=== PATIENT | male | born 1935 | race African-American/Black ===

== ENCOUNTER 2016-06-03 06:24 | Day surgery (SDC) | payer OTHER ==
[2016-06-01 11:10] VITALS: BMI 20.9
[~2016-06-03 06:24] MED LIST: ACETAMINOPHEN 325 MG TABLET (FP) PO PRN; CIPROFLOXACIN HCL 0.3% OPHTH 2.5ML BOTTLE OP SCH; CYCLOPENTOLATE HCL 1% OPHTH SOLN 2 ML BOTTLE OP SCH; FLURBIPROFEN 0.03% OPHTH SOLN 2.5 ML BOTTLE OP SCH; PHENYLEPHRINE 2.5% OPHTH SOLN 15 ML BOTTLE OP SCH; TROPICAMIDE 1% OPHTH SOLN 15 ML BOTTLE OP SCH; VANCOMYCIN 500 MG VIAL (RESTRICTED TO ID ONLY) IVPB ONE
[2016-06-03] MEDS ORDERED: PHENYLEPHRINE 2.5% OPHTH SOLN 15 ML BOTTLE ONE (06:43)
[2016-06-03] MEDS ORDERED: TROPICAMIDE 1% OPHTH SOLN 15 ML BOTTLE ONE (06:43)
[2016-06-03] MEDS ORDERED: CYCLOPENTOLATE HCL 1% OPHTH SOLN 2 ML BOTTLE ONE (06:43)
[2016-06-03] MEDS ORDERED: CIPROFLOXACIN 0.3% EYE DROPS 5 ML BOTTLE ONE (06:43)
[2016-06-03] MEDS ORDERED: FLURBIPROFEN 0.03% OPHTH SOLN 2.5 ML BOTTLE ONE (06:43)
[2016-06-03 06:55] VITALS: TEMP 97.6
[2016-06-03] MEDS ORDERED: PHENYLEPHRINE/KETOROLAC 4 ML VIAL IO ONE ×2 (07:15→08:24)
[2016-06-03] MEDS ORDERED: LIDOCAINE HCL/PF 1% SDV 5ML VIAL ONE (07:36)
[2016-06-03] MEDS ORDERED: VANCOMYCIN 500 MG VIAL (RESTRICTED TO ID ONLY) ONE (07:36)
[2016-06-03] MEDS ORDERED: EPINEPHrine/PF 1 MG/1 ML (1:1,000) AMPULE ONE (07:36)
[2016-06-03] MEDS ORDERED: WATER FOR INJ,STERILE 10 ML ONE (07:37)
[2016-06-03] MEDS ORDERED: BSS (NA/CA/MG/K) BALANCED SALT SOLUTION OPHTH SOLN 15 ML BOTTLE ONE (07:37)
[2016-06-03] MEDS ORDERED: POVIDONE-IODINE 5% OPHTHALMIC PREP 30 ML SOLUTION ONE (07:37)
[2016-06-03] MEDS ORDERED: LIDOCAINE HCL 2% JELLY (5 ML/TUBE) ONE (07:43)
[2016-06-03] MEDS ORDERED: ALBUTEROL SO4 6.7 GM HFA INHALER IH ONE (07:44)
[2016-06-03] MEDS ORDERED: MIDAZOLAM HCL 2 MG/2 ML SINGLE DOSE VIAL ONE (07:44)
[2016-06-03] MEDS ORDERED: LIDOCAINE HCL 2% JELLY (5 ML/TUBE) TP ONE (07:57)
[2016-06-03] MEDS ORDERED: POVIDONE-IODINE 5% OPHTHALMIC PREP 30 ML SOLUTION OD ONE (08:13)
[2016-06-03] MEDS ORDERED: LIDOCAINE HCL 1% PRESERVATIVE FREE - 30ML VIAL IO ONE (08:19)
[2016-06-03] MEDS ORDERED: BSS (NA/CA/MG/K) BALANCED SALT SOLUTION OPHTH SOLN 15 ML BOTTLE OD ONE (08:19)
[2016-06-03] MEDS ORDERED: CHONDROITIN SU A/HYALUR SOD 1 KIT IO ONE (08:20)
[2016-06-03] MEDS ORDERED: VANCOMYCIN 500 MG VIAL (RESTRICTED TO ID ONLY) IVPB ONE (08:40)
--- NOTE | 2016-06-03 09:06 | SPEC ---
DATE OF OPERATION: 06/03/2016 PREOPERATIVE DIAGNOSIS: Cataract, right eye. POSTOPERATIVE DIAGNOSIS: Cataract, right eye. OPERATION: Phacoemulsification of right cataract with posterior chamber intraocular lens implantation. Lens used [id number], 19.5 Diopter power, Serial No. [id number]. SURGEON: John zSymanski M.D. ANESTHESIA: Topical MAC. COMPLICATIONS: None. PROCEDURE: The patient was brought to the operating room and correctly identified along with the operative site and the correct intraocular lens lennon. The patient was then prepped and draped in the usual sterile fashion including 5% Betadine solution in the conjunctival sac and an eyelid drape. An eyelid speculum was then placed in the eye. A paracentesis port was created and approximately 0.5 mL of preservative free Lidocaine was then injected into the eye. Viscoelastic was then injected to inflate the anterior chamber. A temporal clear corneal wound was created. A continuous circular capsulorrhexis was performed. The nucleus was then hydro-dissected with BSS and removed with phacoemulsification. The remaining cortical material was irrigated and aspirated. Viscoelastic was injected to inflate the capsular bag and the intraocular lens was then implanted into the capsular bag. The remaining Viscoelastic was irrigated and aspirated from the eye. The IOL was noted to be well centered and completely covered by the anterior capsulorrhexis. Topical Vancomycin was placed and the eye patched and shielded. The patient was then discharged from the operating room in stable condition. All wounds were tested and found to be watertight. No suture was placed. The eye was then shielded. The patient was then discharged from the operating room in stable condition. JOHN SZYMANSKI M.D. /[id number]
[2016-06-03 12:21] VITALS: BP 163/96; PULSE 90
== END 2016-06-03 09:35 | disposition home or self-care (01) ==
LOC: JASU-SURG 06:24
PROVIDERS: ATTEND Ophthalmology
PROC: 08RJ3JZ Replacement of Right Lens with Synthetic Substitute, Percutaneous Approach (ICD-10-PCS; principal; 2016-06-03 08:00)
DX: H26.9 Unspecified cataract (principal)
CPT/HCPCS: C9447

== ENCOUNTER 2022-08-22 17:49 | Inpatient (IN) | payer BC, OTHER ==
[2022-08-22] MEDS ORDERED: ALBUTEROL SO4 2.5/IPRATROPIUM 0.5 INH SOL 3 ML VIAL.NEB. NEB ONE ×3 (17:59→18:16)
[2022-08-22] MEDS ORDERED: CEFTRIAXONE 1 GM in DEXTROSE 5%-WATER - 50 ML IVPB ONE (18:46)
[2022-08-22 18:47] LABS: VENOUS BASE EXCESS -1.9 mmol/L (-2-2); VENOUS O2 SATURATION 85.5 % (70-80); VENOUS PCO2 50.9 mmHg (38-52); VENOUS PH 7.311 (7.310-7.410)
[2022-08-22] MEDS ORDERED: AZITHROMYCIN IVPB 500 MG in DEXTROSE 5%-WATER - 250 ML IVPB ONE (18:47)
[2022-08-22] MEDS ORDERED: ACETAMINOPHEN 1000 MG/100 ML BAG IVPB ONE (18:48)
[2022-08-22 18:51] LABS: BASO % 0.3 % (0-2.0); HEMATOCRIT 44.9 % (35.4-49); HEMOGLOBIN 14.8 GM/dL (11.7-16.9); LYMPH % 18.3 % (8-40); MCH 28.5 pg (25.7-33.7); MCHC 33.1 g/dl (32.0-35.9); MEAN CELL VOLUME 86.1 fl (80-96); MEAN PLT VOLUME 8.4 fl (7.5-11.1); MONO % 8.3 % (3.8-10.2); NEUT % 70.1 % (42.8-82.8); PLATELET COUNT 196 10^3/uL (134-434); RBC 5.21 M/mm3 (4.00-5.60); RDW 14.5 % (11.9-15.9); WHITE BLOOD COUNT 16.6 K/mm3 (4.0-10.0)
[2022-08-22 19:00] LABS: INR 1.13 (0.83-1.09); PROTHROMBIN TIME (PATIENT) 13.1 SEC (9.7-13.0)
[2022-08-22] MEDS ORDERED: AZITHROMYCIN IVPB 500 MG/250 ML BAG IVPB ONE (19:02)
[2022-08-22] MEDS ORDERED: ACETAMINOPHEN INJECTION 100 ML IVPB ONE (19:02)
[2022-08-22] MEDS ORDERED: CEFTRIAXONE 1 GM/50 ML BAG ONE (19:02)
[2022-08-22 19:03] LABS: ACTIVATED PTT 30.4 SECONDS (25.2-36.5)
[2022-08-22 19:14] LABS: ALBUMIN 3.8 g/dl (3.4-5.0); BLOOD UREA NITROGEN 12.4 mg/dL (7-18); CALCIUM 9.2 mg/dL (8.5-10.1)
[2022-08-22 19:17] LABS: CREATININE 1.4 mg/dL (0.55-1.3)
[2022-08-22 19:19] LABS: TOT PROT 8.6 g/dl (6.4-8.2)
[2022-08-22 19:23] LABS: LACTIC ACID 2.6 mmol/L (0.4-2.0)
[2022-08-22] MEDS ORDERED: SODIUM CHLORIDE 0.9% 500 ML INFUS.BAG IV ONE (19:27)
[2022-08-22] MEDS ORDERED: ACETAMINOPHEN 325 MG TABLET (FP) PO PRN (21:41)
[2022-08-22] MEDS: SODIUM CHLORIDE 1,000 ML IV SCH (23:16)
[2022-08-22] MEDS: HEPARIN NA (PORCINE) 5,000 UNITS/ML 1ML VIAL SQ SCH (23:18)
[2022-08-23 02:14] VITALS: BMI 22.8
[2022-08-23] MEDS: methylPREDNISolone NA SUCC 40 MG/1 ML VIAL IVPUSH SCH ×3 (02:59→17:17)
[2022-08-23] MEDS: HEPARIN NA (PORCINE) 5,000 UNITS/ML 1ML VIAL SQ SCH ×3 (05:26→22:42)
[2022-08-23 06:36] LABS: ARTERIAL BLD GAS O2 SATURATION 98.9 % (95-98); ARTERIAL BLOOD GAS BASE EXCESS -0.1 mmol/L (-2-2); ARTERIAL BLOOD GAS PO2 160.6 mmHg (80-100); ARTERIAL BLOOD GAS pH 7.346 (7.350-7.450)
[2022-08-23 06:38] LABS: ALLENS TEST POSITIVE
[2022-08-23 06:39] LABS: VENT MODE S/T; VENT RATE 16
[2022-08-23] MEDS: ALBUTEROL SO4 2.5/IPRATROPIUM 0.5 INH SOL 3 ML VIAL.NEB. NEB SCH ×4 (07:45→20:40)
[2022-08-23 08:48] LABS: HEMATOCRIT 38.3 % (35.4-49); MCH 28.8 pg (25.7-33.7); MCHC 33.9 g/dl (32.0-35.9); MEAN CELL VOLUME 85.1 fl (80-96); MEAN PLT VOLUME 8.5 fl (7.5-11.1); PLATELET COUNT 169 10^3/uL (134-434); RDW 13.8 % (11.9-15.9); WHITE BLOOD COUNT 17.4 K/mm3 (4.0-10.0)
[2022-08-23 09:07] LABS: CALCIUM 8.4 mg/dL (8.5-10.1)
[2022-08-23 09:08] LABS: ALBUMIN 3.2 g/dl (3.4-5.0); MAGNESIUM 1.9 mg/dL (1.8-2.4)
[2022-08-23 09:10] LABS: CHOLESTEROL 125 mg/dL (50-200)
[2022-08-23 09:11] LABS: CREATININE 1.3 mg/dL (0.55-1.3); LDL CHOLESTEROL (ONLY SJRH) 54 mg/dL (5-100)
[2022-08-23 09:13] LABS: HDL CHOLESTEROL 77 mg/dL (40-60); TOT PROT 7.3 g/dl (6.4-8.2)
[2022-08-23 09:42] LABS: ANISOCYTOSIS 0; HELMET CELLS 0; HOWELL-JOLLY BODIES 0; MACROCYTOSIS 0; OVALOCYTE 0; ROULEAU 0; SICKELED CELLS 0; TARGET CELLS 0; TEAR DROP CELLS 0; TOXIC GRANULATION 0
[2022-08-23] MEDS: CEFTRIAXONE 1 GM in DEXTROSE 5%-WATER - 50 ML IVPB SCH (09:52)
[2022-08-23] MEDS: AZITHROMYCIN IVPB 250 MG in DEXTROSE 5%-WATER - 250 ML IVPB SCH (09:57)
[2022-08-23] MEDS: SODIUM CHLORIDE 1,000 ML IV SCH (22:41)
[2022-08-23] MEDS: ATORVASTATIN CA 20 MG TABLET (FP) PO SCH (22:44)
[2022-08-23] MEDS: DOCUSATE SODIUM 100 MG CAPSULE (FP) PO SCH (23:05)
[2022-08-24 00:52] LABS: PH,URINE 5.5 (5.0-8.0); URINE APPEARANCE CLEAR; URINE BILIRUBIN NEGATIVE (NEGATIVE); URINE COLOR YELLOW; URINE GLUCOSE (UA) NEGATIVE (NEGATIVE); URINE KETONE NEGATIVE (NEGATIVE); URINE LEUK ESTERASE NEGATIVE (NEGATIVE); URINE NITRITE NEGATIVE (NEGATIVE); URINE PROTEIN TRACE (NEGATIVE); URINE UROBILINOGEN 0.2 mg/dL (0.2-1.0)
[2022-08-24] MEDS: methylPREDNISolone NA SUCC 40 MG/1 ML VIAL IVPUSH SCH ×3 (02:10→17:38)
[2022-08-24] MEDS: DOCUSATE SODIUM 100 MG CAPSULE (FP) PO SCH ×3 (05:02→22:57)
[2022-08-24] MEDS: HEPARIN NA (PORCINE) 5,000 UNITS/ML 1ML VIAL SQ SCH (05:10)
[2022-08-24] MEDS: ALBUTEROL SO4 2.5/IPRATROPIUM 0.5 INH SOL 3 ML VIAL.NEB. NEB SCH ×4 (07:40→20:50)
[2022-08-24 08:11] LABS: HEMATOCRIT 36.9 % (35.4-49); HEMOGLOBIN 12.7 GM/dL (11.7-16.9); MCH 29.2 pg (25.7-33.7); MCHC 34.2 g/dl (32.0-35.9); MEAN CELL VOLUME 85.2 fl (80-96); MEAN PLT VOLUME 8.5 fl (7.5-11.1); PLATELET COUNT 164 10^3/uL (134-434); RBC 4.34 M/mm3 (4.00-5.60); WHITE BLOOD COUNT 18.5 K/mm3 (4.0-10.0)
[2022-08-24 09:04] LABS: ANISOCYTOSIS 0; HELMET CELLS 0; HOWELL-JOLLY BODIES 0; MACROCYTOSIS 0; OVALOCYTE 0; ROULEAU 0; SICKELED CELLS 0; TARGET CELLS 0; TEAR DROP CELLS 0; TOXIC GRANULATION 0
[2022-08-24 09:07] LABS: BLOOD UREA NITROGEN 31.1 mg/dL (7-18)
[2022-08-24 09:08] LABS: TOT PROT 7.2 g/dl (6.4-8.2)
[2022-08-24 09:09] LABS: BILIRUBIN,TOTAL 0.3 mg/dL (0.2-1)
[2022-08-24 09:10] LABS: CREATININE 1.3 mg/dL (0.55-1.3)
[2022-08-24 09:11] LABS: ALBUMIN 3.1 g/dl (3.4-5.0); CALCIUM 8.1 mg/dL (8.5-10.1)
[2022-08-24 09:12] LABS: MAGNESIUM 2.1 mg/dL (1.8-2.4)
[2022-08-24] MEDS: CEFTRIAXONE 1 GM in DEXTROSE 5%-WATER - 50 ML IVPB SCH (09:13)
[2022-08-24] MEDS: AZITHROMYCIN IVPB 250 MG in DEXTROSE 5%-WATER - 250 ML IVPB SCH (09:13)
[2022-08-24] MEDS: ENOXAPARIN NA (PORCINE) 40 MG/0.4 ML DISP.SYRIN SQ SCH (10:55)
[2022-08-24] MEDS: ATORVASTATIN CA 20 MG TABLET (FP) PO SCH (22:55)
[2022-08-25] MEDS: methylPREDNISolone NA SUCC 40 MG/1 ML VIAL IVPUSH SCH ×3 (01:44→21:40)
[2022-08-25] MEDS: DOCUSATE SODIUM 100 MG CAPSULE (FP) PO SCH ×3 (06:23→21:40)
[2022-08-25 07:48] LABS: HEMATOCRIT 37.9 % (35.4-49); HEMOGLOBIN 12.9 GM/dL (11.7-16.9); MCHC 34.1 g/dl (32.0-35.9); PLATELET COUNT 176 10^3/uL (134-434); RBC 4.45 M/mm3 (4.00-5.60); RDW 13.9 % (11.9-15.9); WHITE BLOOD COUNT 16.4 K/mm3 (4.0-10.0)
[2022-08-25 08:42] LABS: ANISOCYTOSIS 0; HELMET CELLS 0; HOWELL-JOLLY BODIES 0; MACROCYTOSIS 0; OVALOCYTE 0; ROULEAU 0; SICKELED CELLS 0; TARGET CELLS 0; TEAR DROP CELLS 0; TOXIC GRANULATION 0
[2022-08-25 08:53] LABS: CALCIUM 8.2 mg/dL (8.5-10.1)
[2022-08-25 08:54] LABS: ALBUMIN 2.9 g/dl (3.4-5.0); BLOOD UREA NITROGEN 26.3 mg/dL (7-18); MAGNESIUM 2.3 mg/dL (1.8-2.4)
[2022-08-25 08:57] LABS: CREATININE 1.1 mg/dL (0.55-1.3)
[2022-08-25 08:58] LABS: BILIRUBIN,TOTAL 0.4 mg/dL (0.2-1)
[2022-08-25 08:59] LABS: TOT PROT 6.8 g/dl (6.4-8.2)
[2022-08-25] MEDS: ALBUTEROL SO4 2.5/IPRATROPIUM 0.5 INH SOL 3 ML VIAL.NEB. NEB SCH ×4 (09:35→20:05)
[2022-08-25] MEDS: ENOXAPARIN NA (PORCINE) 40 MG/0.4 ML DISP.SYRIN SQ SCH (10:16)
[2022-08-25] MEDS: CEFTRIAXONE 1 GM in DEXTROSE 5%-WATER - 50 ML IVPB SCH (10:17)
[2022-08-25] MEDS: AZITHROMYCIN IVPB 250 MG in DEXTROSE 5%-WATER - 250 ML IVPB SCH (10:19)
[2022-08-25] MEDS: ATORVASTATIN CA 20 MG TABLET (FP) PO SCH (21:40)
[2022-08-26] MEDS: DOCUSATE SODIUM 100 MG CAPSULE (FP) PO SCH ×3 (05:18→21:04)
[2022-08-26 07:30] LABS: BASO % 0.1 % (0-2.0); HEMATOCRIT 38.4 % (35.4-49); HEMOGLOBIN 13.1 GM/dL (11.7-16.9); LYMPH % 7.2 % (8-40); MCH 29.1 pg (25.7-33.7); MEAN CELL VOLUME 85.6 fl (80-96); MEAN PLT VOLUME 8.5 fl (7.5-11.1); MONO % 3.4 % (3.8-10.2); NEUT % 89.3 % (42.8-82.8); PLATELET COUNT 182 10^3/uL (134-434); RBC 4.49 M/mm3 (4.00-5.60); RDW 14.2 % (11.9-15.9); WHITE BLOOD COUNT 14.3 K/mm3 (4.0-10.0)
[2022-08-26] MEDS: ALBUTEROL SO4 2.5/IPRATROPIUM 0.5 INH SOL 3 ML VIAL.NEB. NEB SCH ×4 (07:45→20:39)
[2022-08-26 07:51] LABS: ALBUMIN 2.8 g/dl (3.4-5.0); BLOOD UREA NITROGEN 24.6 mg/dL (7-18); CALCIUM 8.1 mg/dL (8.5-10.1); MAGNESIUM 2.4 mg/dL (1.8-2.4)
[2022-08-26 07:54] LABS: PHOSPHOROUS 3.4 mg/dL (2.5-4.9)
[2022-08-26 07:56] LABS: BILIRUBIN,TOTAL 0.3 mg/dL (0.2-1); TOT PROT 6.5 g/dl (6.4-8.2)
[2022-08-26] MEDS: methylPREDNISolone NA SUCC 40 MG/1 ML VIAL IVPUSH SCH ×2 (09:47→21:04)
[2022-08-26] MEDS: ENOXAPARIN NA (PORCINE) 40 MG/0.4 ML DISP.SYRIN SQ SCH ×2 (09:47→09:52)
[2022-08-26] MEDS ORDERED: ALBUTEROL SO4 HFA INHALER IH PRN (12:33)
[2022-08-26] MEDS ORDERED: PATIENT'S OWN MEDICATION (NON-FORMULARY) (Budesonide/Glycopyr/Formoterol [Breztri Aerosphe IH SCH (12:45)
[2022-08-26] MEDS: ATORVASTATIN CA 20 MG TABLET (FP) PO SCH (21:03)
[2022-08-26] MEDS ORDERED: FAMOTIDINE 20 MG TABLET PO ONE (22:41)
[2022-08-27] MEDS: DOCUSATE SODIUM 100 MG CAPSULE (FP) PO SCH ×3 (05:50→21:53)
[2022-08-27 07:51] LABS: HEMOGLOBIN 13.6 GM/dL (11.7-16.9); LYMPH % 9.9 % (8-40); MCH 29.3 pg (25.7-33.7); MEAN PLT VOLUME 8.4 fl (7.5-11.1); MONO % 4.4 % (3.8-10.2); NEUT % 85.7 % (42.8-82.8); PLATELET COUNT 191 10^3/uL (134-434); RBC 4.65 M/mm3 (4.00-5.60); RDW 14.1 % (11.9-15.9); WHITE BLOOD COUNT 12.5 K/mm3 (4.0-10.0)
[2022-08-27] MEDS: ALBUTEROL SO4 2.5/IPRATROPIUM 0.5 INH SOL 3 ML VIAL.NEB. NEB SCH ×4 (07:54→20:29)
[2022-08-27 08:08] LABS: CALCIUM 8.3 mg/dL (8.5-10.1)
[2022-08-27 08:09] LABS: ALBUMIN 2.8 g/dl (3.4-5.0); BLOOD UREA NITROGEN 21.8 mg/dL (7-18); MAGNESIUM 2.6 mg/dL (1.8-2.4)
[2022-08-27 08:12] LABS: PHOSPHOROUS 3.4 mg/dL (2.5-4.9)
[2022-08-27 08:14] LABS: BILIRUBIN,TOTAL 0.5 mg/dL (0.2-1); TOT PROT 6.3 g/dl (6.4-8.2)
[2022-08-27] MEDS: methylPREDNISolone NA SUCC 40 MG/1 ML VIAL IVPUSH SCH ×2 (09:26→21:53)
[2022-08-27] MEDS: PANTOPRAZOLE 20 MG TABLET PO SCH (09:26)
[2022-08-27] MEDS: ENOXAPARIN NA (PORCINE) 40 MG/0.4 ML DISP.SYRIN SQ SCH ×2 (09:26→10:18)
[2022-08-27] MEDS: ATORVASTATIN CA 20 MG TABLET (FP) PO SCH (21:53)
[2022-08-28] MEDS: DOCUSATE SODIUM 100 MG CAPSULE (FP) PO SCH ×2 (06:11→15:06)
[2022-08-28 08:08] LABS: BASO % 0.1 % (0-2.0); EOS % 0.6 % (0-4.5); HEMATOCRIT 41.9 % (35.4-49); HEMOGLOBIN 14.2 GM/dL (11.7-16.9); LYMPH % 20.4 % (8-40); MCHC 33.9 g/dl (32.0-35.9); MEAN CELL VOLUME 85.6 fl (80-96); MEAN PLT VOLUME 8.1 fl (7.5-11.1); MONO % 8.2 % (3.8-10.2); NEUT % 70.7 % (42.8-82.8); PLATELET COUNT 195 10^3/uL (134-434); WHITE BLOOD COUNT 13.5 K/mm3 (4.0-10.0)
[2022-08-28] MEDS: ALBUTEROL SO4 2.5/IPRATROPIUM 0.5 INH SOL 3 ML VIAL.NEB. NEB SCH ×4 (08:23→20:05)
[2022-08-28 08:24] LABS: BLOOD UREA NITROGEN 21.1 mg/dL (7-18); CALCIUM 8.4 mg/dL (8.5-10.1)
[2022-08-28 08:25] LABS: ALBUMIN 2.7 g/dl (3.4-5.0); MAGNESIUM 2.4 mg/dL (1.8-2.4)
[2022-08-28 08:28] LABS: PHOSPHOROUS 2.5 mg/dL (2.5-4.9)
[2022-08-28 08:29] LABS: BILIRUBIN,TOTAL 0.6 mg/dL (0.2-1); TOT PROT 6.3 g/dl (6.4-8.2)
[2022-08-28] MEDS: PANTOPRAZOLE 20 MG TABLET PO SCH (09:49)
[2022-08-28] MEDS: methylPREDNISolone NA SUCC 40 MG/1 ML VIAL IVPUSH SCH (09:49)
[2022-08-28] MEDS: ENOXAPARIN NA (PORCINE) 40 MG/0.4 ML DISP.SYRIN SQ SCH (09:59)
[2022-08-28 18:34] VITALS: BP 128/83; PULSE 93; RESP 19; TEMP 97.5
[2022-08-28] MEDS ORDERED: RANOLAZINE E.R. 500 MG TABLET (FP) PO SCH (22:00)
[2022-08-29] MEDS ORDERED: amLODIPine BESYLATE 5 MG TABLET (FP) PO SCH (10:00)
[2022-08-29] MEDS ORDERED: predniSONE 20 MG TABLET (UD) PO SCH (10:00)
[2022-08-29] MEDS ORDERED: CILOSTAZOL 50 MG TABLET PO SCH (10:00)
[2022-08-29] MEDS ORDERED: LOSARTAN POTASSIUM 50 MG TABLET PO SCH (10:00)
== END 2022-08-28 20:50 | disposition home or self-care (01) | DRG 189 ==
LOC: JER 17:49 → JERBED 18:49 → J4S 22:06
PROVIDERS: ADMIT Internal Medicine; ATTEND Internal Medicine
DX: J96.01 Acute respiratory failure with hypoxia (principal); E87.20 Acidosis, unspecified; N17.9 Acute kidney failure, unspecified; I10 Essential (primary) hypertension; E78.5 Hyperlipidemia, unspecified; E11.9 Type 2 diabetes mellitus without complications; D72.829 Elevated white blood cell count, unspecified; N28.1 Cyst of kidney, acquired; I27.20 Pulmonary hypertension, unspecified; J43.8 Other emphysema
CPT/HCPCS: 0241U-QW; 36415; 36600; 71045-TC-FY; 71250-TC; 76775-TC; 80053; 80061; 81003; 82550; 82553; 82803; 83036; 83605; 83735; 84100; 84484; 85025; 85610; 85730; 86850; 86900; 86901; 87040; 87899; 93005; 93010; 94640; 94660; 94761; 97116-GP; 99291; J1644

== ENCOUNTER 2023-10-22 09:17 | Inpatient (IN) | payer OTHER ==
[2023-10-22] MEDS ORDERED: ALBUTEROL SO4 2.5/IPRATROPIUM 0.5 INH SOL 3 ML VIAL.NEB. NEB ONE (09:32)
[2023-10-22] MEDS ORDERED: methylPREDNISolone NA SUCC 125 MG/2 ML VIAL ONE (09:32)
[2023-10-22] MEDS: ALBUTEROL SO4 2.5/IPRATROPIUM 0.5 INH SOL 3 ML VIAL.NEB. NEB ONE (09:35)
[2023-10-22] MEDS: methylPREDNISolone NA SUCC 125 MG/2 ML VIAL IVPB ONE (09:45)
[2023-10-22 09:59] LABS: VENOUS BASE EXCESS 3.3 mmol/L (-2-2); VENOUS O2 SATURATION 24.3 % (70-80); VENOUS PCO2 69.8 mmHg (38-52); VENOUS PH 7.287 (7.310-7.410)
[2023-10-22 10:02] LABS: BASO % 0.5 % (0-2.0); EOS % 1.9 % (0-4.5); HEMATOCRIT 46.7 % (35.4-49); HEMOGLOBIN 15.2 GM/dL (11.7-16.9); LYMPH % 20.4 % (8-40); MCH 28.6 pg (25.7-33.7); MCHC 32.6 g/dl (32.0-35.9); MEAN CELL VOLUME 87.8 fl (80-96); MONO % 10.4 % (3.8-10.2); NEUT % 66.8 % (42.8-82.8); PLATELET COUNT 224 10^3/uL (134-434); RBC 5.32 M/mm3 (4.00-5.60); RDW 13.6 % (11.9-15.9); WHITE BLOOD COUNT 13.8 K/mm3 (4.0-10.0)
[2023-10-22] MEDS ORDERED: MAGNESIUM 1GM/D5W - 1 GM/100 ML IVPB IVPB ONE (10:03)
[2023-10-22] MEDS: MAGNESIUM 1GM/D5W - 1 GM/100 ML IVPB IVPB ONE (10:08)
[2023-10-22 10:22] LABS: POTASSIUM 4.3 mmol/L (3.5-5.1)
[2023-10-22 10:24] LABS: BLOOD UREA NITROGEN 11.7 mg/dL (7-18); CALCIUM 8.5 mg/dL (8.5-10.1)
[2023-10-22 10:27] LABS: CREATININE 1.1 mg/dL (0.55-1.3)
[2023-10-22 10:28] LABS: BILIRUBIN,TOTAL 1.3 mg/dL (0.2-1); TOT PROT 7.5 g/dl (6.4-8.2)
[2023-10-22 10:35] LABS: N-TERMINAL BNP 2806.2 pg/ml (5-450)
[2023-10-22 11:20] LABS: VENOUS BASE EXCESS 4.2 mmol/L (-2-2); VENOUS O2 SATURATION 35.9 % (70-80); VENOUS PCO2 73.7 mmHg (38-52)
[2023-10-22 11:22] LABS: VENOUS PH 7.28 (7.310-7.410)
[2023-10-22 11:55] LABS: ARTERIAL BLD GAS O2 SATURATION 98.5 % (95-98); ARTERIAL BLOOD GAS PO2 133.3 mmHg (80-100); ARTERIAL BLOOD GAS pH 7.358 (7.350-7.450)
[2023-10-22] MEDS ORDERED: ACETAMINOPHEN 325 MG TABLET (FP) PO PRN (12:14)
[2023-10-22] MEDS: ALBUTEROL SO4 2.5/IPRATROPIUM 0.5 INH SOL 3 ML VIAL.NEB. NEB SCH (15:40)
[2023-10-22] MEDS: methylPREDNISolone NA SUCC 40 MG/1 ML VIAL IVPUSH SCH (18:22)
[2023-10-22] MEDS: HEPARIN NA (PORCINE) 5,000 UNITS/ML 1ML VIAL SQ SCH (22:23)
[2023-10-22] MEDS: RANOLAZINE E.R. 500 MG TABLET (FP) PO SCH (22:23)
[2023-10-22] MEDS: ATORVASTATIN CA 20 MG TABLET (FP) PO SCH (22:23)
[2023-10-23 06:47] LABS: BASO % 0.1 % (0-2.0); HEMATOCRIT 41.4 % (35.4-49); HEMOGLOBIN 13.6 GM/dL (11.7-16.9); LYMPH % 7.6 % (8-40); MCH 28.5 pg (25.7-33.7); MCHC 32.8 g/dl (32.0-35.9); MEAN CELL VOLUME 86.9 fl (80-96); MEAN PLT VOLUME 8.4 fl (7.5-11.1); MONO % 2.6 % (3.8-10.2); NEUT % 89.7 % (42.8-82.8); PLATELET COUNT 205 10^3/uL (134-434); RBC 4.77 M/mm3 (4.00-5.60); RDW 13.6 % (11.9-15.9); WHITE BLOOD COUNT 12.5 K/mm3 (4.0-10.0)
[2023-10-23 07:07] LABS: POTASSIUM 4.7 mmol/L (3.5-5.1)
[2023-10-23 07:12] LABS: ALBUMIN 2.6 g/dl (3.4-5.0); CALCIUM 8.3 mg/dL (8.5-10.1)
[2023-10-23 07:13] LABS: CHOLESTEROL 140 mg/dL (50-200)
[2023-10-23 07:14] LABS: LDL CHOLESTEROL (ONLY SJRH) 61 mg/dL (5-100)
[2023-10-23 07:17] LABS: BILIRUBIN,TOTAL 0.5 mg/dL (0.2-1); CREATININE 1.1 mg/dL (0.55-1.3); HDL CHOLESTEROL 67 mg/dL (40-60); TOT PROT 6.4 g/dl (6.4-8.2)
[2023-10-23] MEDS: LOSARTAN POTASSIUM 50 MG TABLET PO SCH (09:45)
[2023-10-23] MEDS: amLODIPine BESYLATE 5 MG TABLET (FP) PO SCH (09:45)
[2023-10-23] MEDS: CILOSTAZOL 50 MG TABLET PO SCH (09:45)
[2023-10-23] MEDS: FLUTICASONE/UMECLIDIN/VILANTER(200-62.5-25 TRELEGY ELLIPTA) INAHLER IH SCH (09:45)
[2023-10-24 18:15] VITALS: BMI 19.3
[2023-10-28] MEDS: methylPREDNISolone NA SUCC 40 MG/1 ML VIAL IVPUSH SCH ×2 (02:07→22:01)
[2023-10-28] MEDS: INSULIN (NOVOLOG) ASPART 100 UNITS/ML 10ML VIAL SQ SCH (06:26)
[2023-10-28] MEDS: ACETAMINOPHEN 325 MG TABLET (FP) PO PRN (07:03)
[2023-10-28 08:43] LABS: HEMATOCRIT 45.1 % (35.4-49); HEMOGLOBIN 15.1 GM/dL (11.7-16.9); MCHC 33.4 g/dl (32.0-35.9); MEAN CELL VOLUME 86.6 fl (80-96); PLATELET COUNT 285 10^3/uL (134-434); RBC 5.21 M/mm3 (4.00-5.60); RDW 13.7 % (11.9-15.9); WHITE BLOOD COUNT 17.8 K/mm3 (4.0-10.0)
[2023-10-28 09:15] LABS: ALBUMIN 3.1 g/dl (3.4-5.0)
[2023-10-28 09:17] LABS: CALCIUM 9.2 mg/dL (8.5-10.1)
[2023-10-28 09:18] LABS: CREATININE 1.6 mg/dL (0.55-1.3)
[2023-10-28 09:20] LABS: BILIRUBIN,TOTAL 0.8 mg/dL (0.2-1); TOT PROT 6.9 g/dl (6.4-8.2)
[2023-10-28 09:26] LABS: BLOOD UREA NITROGEN 48.4 mg/dL (7-18)
[2023-10-28 10:04] LABS: ANISOCYTOSIS 0; MACROCYTOSIS 0
[2023-10-28] MEDS: RANOLAZINE E.R. 500 MG TABLET (FP) PO SCH (10:07)
[2023-10-28] MEDS: CILOSTAZOL 50 MG TABLET PO SCH (10:07)
[2023-10-28] MEDS: amLODIPine BESYLATE 5 MG TABLET (FP) PO SCH (10:07)
[2023-10-28] MEDS: HEPARIN NA (PORCINE) 5,000 UNITS/ML 1ML VIAL SQ SCH (10:07)
[2023-10-28] MEDS: LOSARTAN POTASSIUM 50 MG TABLET PO SCH (10:07)
[2023-10-28] MEDS: ACETAMINOPHEN WITH CODEINE 300MG/30MG TABLET PO PRN (11:27)
[2023-10-28] MEDS: FLUTICASONE/UMECLIDIN/VILANTER(200-62.5-25 TRELEGY ELLIPTA) INAHLER IH SCH (11:31)
[2023-10-28] MEDS: ATORVASTATIN CA 20 MG TABLET (FP) PO SCH (22:01)
[2023-10-29] MEDS: LOSARTAN POTASSIUM 50 MG TABLET PO SCH (10:04)
[2023-10-29 12:34] LABS: BASO % 0.1 % (0-2.0); HEMOGLOBIN 15.4 GM/dL (11.7-16.9); LYMPH % 4.6 % (8-40); MCH 28.8 pg (25.7-33.7); MCHC 33.4 g/dl (32.0-35.9); MEAN CELL VOLUME 86.3 fl (80-96); MEAN PLT VOLUME 7.9 fl (7.5-11.1); MONO % 4.4 % (3.8-10.2); NEUT % 90.9 % (42.8-82.8); PLATELET COUNT 282 10^3/uL (134-434); RBC 5.33 M/mm3 (4.00-5.60); RDW 14.3 % (11.9-15.9)
[2023-10-29 13:03] LABS: POTASSIUM 5.2 mmol/L (3.5-5.1)
[2023-10-29 13:06] LABS: CALCIUM 8.9 mg/dL (8.5-10.1)
[2023-10-29 13:07] LABS: ALBUMIN 3.1 g/dl (3.4-5.0); BLOOD UREA NITROGEN 66.6 mg/dL (7-18)
[2023-10-29 13:10] LABS: CREATININE 2.3 mg/dL (0.55-1.3)
[2023-10-29 13:12] LABS: BILIRUBIN,TOTAL 0.6 mg/dL (0.2-1); TOT PROT 6.8 g/dl (6.4-8.2)
[2023-10-29] MEDS: SODIUM ZIRCONIUM CYCLOSILICATE (LOKELMA) 5 GM PACKET PO SCH (15:46)
[2023-10-30 09:09] LABS: POTASSIUM 5.6 mmol/L (3.5-5.1)
[2023-10-30 09:21] LABS: BLOOD UREA NITROGEN 85.6 mg/dL (7-18); CALCIUM 8.8 mg/dL (8.5-10.1)
[2023-10-30 09:24] LABS: CREATININE 3.3 mg/dL (0.55-1.3); TOT PROT 6.5 g/dl (6.4-8.2)
[2023-10-30 09:26] LABS: BILIRUBIN,TOTAL 0.7 mg/dL (0.2-1)
[2023-10-30] MEDS: SODIUM ZIRCONIUM CYCLOSILICATE (LOKELMA) 5 GM PACKET PO ONE (14:40)
[2023-10-31 08:13] LABS: POTASSIUM 5.8 mmol/L (3.5-5.1)
[2023-10-31 08:29] LABS: CALCIUM 8.3 mg/dL (8.5-10.1)
[2023-10-31 08:30] LABS: ALBUMIN 2.7 g/dl (3.4-5.0); BLOOD UREA NITROGEN 87.5 mg/dL (7-18)
[2023-10-31 08:33] LABS: CREATININE 3.3 mg/dL (0.55-1.3)
[2023-10-31] MEDS: TAMSULOSIN HCL 0.4 MG CAP PO SCH (08:34)
[2023-10-31 08:35] LABS: BILIRUBIN,TOTAL 0.6 mg/dL (0.2-1); TOT PROT 6.2 g/dl (6.4-8.2)
[2023-10-31] MEDS: SODIUM ZIRCONIUM CYCLOSILICATE (LOKELMA) 5 GM PACKET PO SCH (09:23)
[2023-10-31] MEDS ORDERED: SODIUM CHLORIDE 0.45% 1,000 ML IV SCH (10:30)
[2023-10-31] MEDS: ALBUTEROL SO4 2.5/IPRATROPIUM 0.5 INH SOL 3 ML VIAL.NEB. NEB SCH ×2 (11:40→15:01)
[2023-10-31 11:51] LABS: EPI CELLS 2 /uL (0-25.1); HYALINE CASTS 0 /uL (0-3.1); URINE APPEARANCE CLEAR; URINE BACTERIA 8 /uL (0-1359); URINE BILIRUBIN NEGATIVE (NEGATIVE); URINE COLOR YELLOW; URINE GLUCOSE (UA) TRACE (NEGATIVE); URINE KETONE NEGATIVE (NEGATIVE); URINE LEUK ESTERASE NEGATIVE (NEGATIVE); URINE NITRITE NEGATIVE (NEGATIVE); URINE PROTEIN NEGATIVE (NEGATIVE); URINE RBC 1895 /uL (0-23.9); URINE UROBILINOGEN 0.2 mg/dL (0.2-1.0); URINE WBC 16 /uL (0-25.8)
[2023-10-31] MEDS: SODIUM CHLORIDE 0.45% 1,000 ML IV SCH (11:52)
[2023-10-31] MEDS: SODIUM ZIRCONIUM CYCLOSILICATE (LOKELMA) 5 GM PACKET PO ONE (11:53)
[2023-10-31] MEDS: LACTULOSE 20 GM/30 ML UDC (FOR ORAL USE ONLY) PO ONE (13:42)
[2023-11-01 09:51] LABS: CALCIUM 8.2 mg/dL (8.5-10.1)
[2023-11-01 09:52] LABS: ALBUMIN 2.8 g/dl (3.4-5.0)
[2023-11-01 09:55] LABS: CREATININE 1.2 mg/dL (0.55-1.3)
[2023-11-01 09:56] LABS: BILIRUBIN,TOTAL 0.8 mg/dL (0.2-1); TOT PROT 6.4 g/dl (6.4-8.2)
[2023-11-01 09:59] LABS: BLOOD UREA NITROGEN 38.8 mg/dL (7-18)
[2023-11-01] MEDS: TAMSULOSIN HCL 0.4 MG CAP PO SCH (11:00)
[2023-11-01] MEDS: DUTASTERIDE 0.5 MG CAP (FP) PO SCH (11:33)
[2023-11-01 18:29] VITALS: RESP 18
[2023-11-01] MEDS: methylPREDNISolone NA SUCC 40 MG/1 ML VIAL IVPUSH SCH (21:37)
[2023-11-02] MEDS ORDERED: INSULIN ASPART SLIDING SCALE (NOVOLOG) 1 VIAL SQ ONE (06:52)
[2023-11-02 08:05] LABS: POTASSIUM 5.3 mmol/L (3.5-5.1)
[2023-11-02 08:19] LABS: CALCIUM 8.2 mg/dL (8.5-10.1)
[2023-11-02 08:20] LABS: BLOOD UREA NITROGEN 29.5 mg/dL (7-18)
[2023-11-02 08:23] LABS: CREATININE 1.1 mg/dL (0.55-1.3)
[2023-11-02 08:24] LABS: BILIRUBIN,TOTAL 0.9 mg/dL (0.2-1); TOT PROT 6.7 g/dl (6.4-8.2)
[2023-11-03] MEDS ORDERED: INSULIN ASPART SLIDING SCALE (NOVOLOG) 1 VIAL SQ ONE (07:39)
[2023-11-03] MEDS: SODIUM ZIRCONIUM CYCLOSILICATE (LOKELMA) 5 GM PACKET PO SCH (10:02)
[2023-11-04] MEDS ORDERED: ALPRAZolam 0.25 MG TABLET PO PRN (10:52)
[2023-11-04 11:04] VITALS: PULSE 95
[2023-11-04] MEDS: predniSONE 20 MG TABLET (UD) PO SCH (11:41)
[2023-11-04 15:16] VITALS: BP 114/67; TEMP 98.5
== END 2023-11-04 19:01 | disposition home or self-care (01) | DRG 189 ==
LOC: JER 09:17 → JERBED 11:52 → J4W 13:32 → J6S 10-27 21:28
PROVIDERS: ADMIT Internal Medicine; ATTEND Internal Medicine
DX: J96.22 Acute and chronic respiratory failure with hypercapnia (principal); J44.1 Chronic obstructive pulmonary disease with (acute) exacerbation; N17.9 Acute kidney failure, unspecified; N13.30 Unspecified hydronephrosis; J96.21 Acute and chronic respiratory failure with hypoxia; I27.20 Pulmonary hypertension, unspecified; I10 Essential (primary) hypertension; E11.9 Type 2 diabetes mellitus without complications; E87.5 Hyperkalemia; N40.0 Benign prostatic hyperplasia without lower urinary tract symptoms; R33.9 Retention of urine, unspecified
CPT/HCPCS: 0241U-QW; 36415; 36600; 71045-TC-FY; 76775-TC; 76856-TC; 80053; 80061; 81003; 82803; 82962; 83036; 83735; 83880; 84153; 84443; 84484; 85025; 93005; 93010; 93306-TC; 93970-TC; 94640; 94660; 97116-GP; 97161-GP; 99291; J1644

== ENCOUNTER 2023-11-05 06:47 | Inpatient (IN) | payer OTHER ==
[2023-11-05] MEDS ORDERED: ALBUTEROL SO4 2.5/IPRATROPIUM 0.5 INH SOL 3 ML VIAL.NEB. NEB ONE (07:57)
[2023-11-05] MEDS ORDERED: methylPREDNISolone NA SUCC 125 MG/2 ML VIAL ONE (07:57)
[2023-11-05] MEDS ORDERED: MAGNESIUM SULFATE IN WATER 2 GM/50 ML IVPB IVPB ONE (07:58)
[2023-11-05 08:02] LABS: VENOUS BASE EXCESS 6.5 mmol/L (-2-2); VENOUS O2 SATURATION 96.5 % (70-80); VENOUS PH 7.46 (7.310-7.410)
[2023-11-05 08:04] LABS: BASO % 0.3 % (0-2.0); EOS % 0.5 % (0-4.5); HEMATOCRIT 43.5 % (35.4-49); HEMOGLOBIN 14.4 GM/dL (11.7-16.9); LYMPH % 9.3 % (8-40); MCH 28.7 pg (25.7-33.7); MCHC 33.1 g/dl (32.0-35.9); MEAN CELL VOLUME 86.8 fl (80-96); MEAN PLT VOLUME 7.6 fl (7.5-11.1); MONO % 6.8 % (3.8-10.2); NEUT % 83.1 % (42.8-82.8); PLATELET COUNT 187 10^3/uL (134-434); RBC 5.01 M/mm3 (4.00-5.60); RDW 13.8 % (11.9-15.9); WHITE BLOOD COUNT 16.9 K/mm3 (4.0-10.0)
[2023-11-05] MEDS: ALBUTEROL SO4 2.5/IPRATROPIUM 0.5 INH SOL 3 ML VIAL.NEB. NEB SCH ×2 (08:22→15:34)
[2023-11-05] MEDS: MAGNESIUM SULF 50% (8.12 MEQ/2 ML-1 GM VIAL) IVPB ONE (08:22)
[2023-11-05] MEDS: methylPREDNISolone NA SUCC 125 MG/2 ML VIAL IVPUSH ONE (08:22)
[2023-11-05 08:23] LABS: POTASSIUM 3.7 mmol/L (3.5-5.1)
[2023-11-05 08:25] LABS: CALCIUM 8.5 mg/dL (8.5-10.1)
[2023-11-05 08:26] LABS: ALBUMIN 2.9 g/dl (3.4-5.0); MAGNESIUM 1.9 mg/dL (1.8-2.4)
[2023-11-05 08:29] LABS: CREATININE 1.1 mg/dL (0.55-1.3)
[2023-11-05 08:31] LABS: TOT PROT 5.9 g/dl (6.4-8.2)
[2023-11-05 08:39] LABS: INR 1.04 (0.83-1.09); PROTHROMBIN TIME (PATIENT) 11.9 SEC (9.7-13.0)
[2023-11-05 08:42] LABS: ACTIVATED PTT 25.9 SECONDS (25.2-36.5)
[2023-11-05] MEDS: SODIUM CHLORIDE 0.9% 500 ML INFUS.BAG IV ONE (08:59)
[2023-11-05 11:13] LABS: URINE APPEARANCE CLEAR; URINE COLOR YELLOW; URINE GLUCOSE (UA) NEGATIVE (NEGATIVE)
[2023-11-05 11:14] LABS: PH,URINE 7.5 (5.0-8.0); URINE BILIRUBIN NEGATIVE (NEGATIVE); URINE KETONE TRACE (NEGATIVE); URINE LEUK ESTERASE 3+ (NEGATIVE); URINE NITRITE NEGATIVE (NEGATIVE); URINE PROTEIN 1+ (NEGATIVE)
[2023-11-05] MEDS: CEFTRIAXONE 1,000 MG in DEXTROSE 5%-WATER - 50 ML IVPB ONE (12:11)
[2023-11-05] MEDS ORDERED: CEFTRIAXONE 1 GM/50 ML BAG ONE (12:12)
[2023-11-05] MEDS: methylPREDNISolone NA SUCC 40 MG/1 ML VIAL IVPB ONE (14:58)
[2023-11-05] MEDS: methylPREDNISolone NA SUCC 125 MG/2 ML VIAL IVPB ONE (18:19)
[2023-11-05] MEDS: ATORVASTATIN CA 20 MG TABLET (FP) PO SCH (21:48)
[2023-11-05] MEDS: MELATONIN 5 MG TABLETS PO SCH (21:49)
[2023-11-05] MEDS: RANOLAZINE E.R. 500 MG TABLET (FP) PO SCH (21:49)
[2023-11-06 08:14] LABS: POTASSIUM 4.5 mmol/L (3.5-5.1)
[2023-11-06 08:16] LABS: BASO % 0.1 % (0-2.0); HEMATOCRIT 41.4 % (35.4-49); HEMOGLOBIN 13.7 GM/dL (11.7-16.9); LYMPH % 6.3 % (8-40); MCH 28.6 pg (25.7-33.7); MCHC 33.2 g/dl (32.0-35.9); MEAN CELL VOLUME 86.2 fl (80-96); MEAN PLT VOLUME 8.1 fl (7.5-11.1); MONO % 4.6 % (3.8-10.2); PLATELET COUNT 176 10^3/uL (134-434); RBC 4.81 M/mm3 (4.00-5.60); RDW 13.8 % (11.9-15.9); WHITE BLOOD COUNT 18.8 K/mm3 (4.0-10.0)
[2023-11-06 08:20] LABS: BLOOD UREA NITROGEN 19.5 mg/dL (7-18); CALCIUM 8.3 mg/dL (8.5-10.1)
[2023-11-06 08:21] LABS: ALBUMIN 2.5 g/dl (3.4-5.0); MAGNESIUM 2.4 mg/dL (1.8-2.4)
[2023-11-06 08:24] LABS: CREATININE 0.9 mg/dL (0.55-1.3)
[2023-11-06 08:26] LABS: BILIRUBIN,TOTAL 0.6 mg/dL (0.2-1); TOT PROT 5.6 g/dl (6.4-8.2)
[2023-11-06] MEDS: TAMSULOSIN HCL 0.4 MG CAP PO SCH (08:38)
[2023-11-06] MEDS: DUTASTERIDE 0.5 MG CAP (FP) PO SCH (09:17)
[2023-11-06] MEDS: ASPIRIN COATED 81 MG TABLET.EC PO SCH (09:17)
[2023-11-06] MEDS: CILOSTAZOL 50 MG TABLET PO SCH (09:17)
[2023-11-06] MEDS: ENOXAPARIN NA (PORCINE) 40 MG/0.4 ML DISP.SYRIN SQ SCH (09:17)
[2023-11-06] MEDS: FLUTICASONE/UMECLIDIN/VILANTER(200-62.5-25 TRELEGY ELLIPTA) INAHLER IH SCH (09:21)
[2023-11-06] MEDS: predniSONE 20 MG TABLET (UD) PO SCH (11:38)
[2023-11-06] MEDS: methylPREDNISolone NA SUCC 40 MG/1 ML VIAL IVPB SCH (11:41)
[2023-11-06] MEDS: ALPRAZolam 0.25 MG TABLET PO PRN (13:19)
[2023-11-07] MEDS: CEFTRIAXONE 1 GM in DEXTROSE 5%-WATER - 50 ML IVPB SCH ×2 (10:10→10:26)
[2023-11-07] MEDS ORDERED: ALPRAZolam 0.25 MG TABLET PO PRN (19:54)
[2023-11-07] MEDS: ALBUTEROL SO4 2.5/IPRATROPIUM 0.5 INH SOL 3 ML VIAL.NEB. NEB SCH (20:13)
[2023-11-07] MEDS: RANOLAZINE E.R. 500 MG TABLET (FP) PO SCH (21:21)
[2023-11-07] MEDS: MELATONIN 5 MG TABLETS PO SCH (21:21)
[2023-11-07] MEDS: ATORVASTATIN CA 20 MG TABLET (FP) PO SCH (21:21)
[2023-11-07] MEDS: methylPREDNISolone NA SUCC 40 MG/1 ML VIAL IVPB SCH (21:22)
[2023-11-08] MEDS: INSULIN ASPART SLIDING SCALE (NOVOLOG) 1 VIAL SQ SCH (06:12)
[2023-11-08] MEDS: TAMSULOSIN HCL 0.4 MG CAP PO SCH (08:35)
[2023-11-08] MEDS: ASPIRIN COATED 81 MG TABLET.EC PO SCH (09:23)
[2023-11-08] MEDS: CILOSTAZOL 50 MG TABLET PO SCH (09:24)
[2023-11-08] MEDS: DUTASTERIDE 0.5 MG CAP (FP) PO SCH (09:25)
[2023-11-08] MEDS: ENOXAPARIN NA (PORCINE) 40 MG/0.4 ML DISP.SYRIN SQ SCH (09:27)
[2023-11-08] MEDS: FLUTICASONE/UMECLIDIN/VILANTER(200-62.5-25 TRELEGY ELLIPTA) INAHLER IH SCH (10:14)
[2023-11-08 14:50] VITALS: BMI 18.4
[2023-11-09] MEDS: predniSONE 20 MG TABLET (UD) PO SCH (10:14)
[2023-11-09] MEDS: busPIRone HCL 5 MG TABLET PO SCH (11:19)
[2023-11-11 02:51] VITALS: RESP 20
[2023-11-11 15:01] VITALS: BP 130/64; PULSE 108; TEMP 98.4
== END 2023-11-11 18:22 | DRG 190 ==
LOC: JER 06:47 → JERBED 12:18 → J4W 13:41 → J6S 11-07 12:44
PROVIDERS: ADMIT Internal Medicine; ATTEND Internal Medicine
DX: J44.1 Chronic obstructive pulmonary disease with (acute) exacerbation (principal); J96.21 Acute and chronic respiratory failure with hypoxia; I10 Essential (primary) hypertension; E11.9 Type 2 diabetes mellitus without complications; I27.20 Pulmonary hypertension, unspecified; N40.1 Benign prostatic hyperplasia with lower urinary tract symptoms; R33.8 Other retention of urine; Z99.81 Dependence on supplemental oxygen
CPT/HCPCS: 0241U-QW; 36415; 71045-TC-FY; 71275-TC; 80053; 81003; 81015; 82803; 82962; 83605; 83735; 83880; 84484; 85025; 85610; 85730; 87040; 87086; 87186; 87635; 93005; 93010; 94640; 94660; 97116-GP; 97162-GP; 99291; Q9967

== ENCOUNTER 2023-12-04 00:57 | Emergency (ER) | payer OTHER ==
[2023-12-04 01:37] VITALS: BP 0/0; PULSE 0; RESP 0; BMI 27.1
== END 2023-12-04 04:38 | disposition expired ==
LOC: JER 00:57
PROC: 5A1221Z Performance of Cardiac Output, Continuous (ICD-10-PCS; principal; 2023-12-04)
DX: I46.9 Cardiac arrest, cause unspecified (principal)
CPT/HCPCS: 92950; 99285-25